=== PATIENT | male | born 1990 | race Caucasian/White ===

== ENCOUNTER 2018-10-13 10:45 | Emergency (ER) | payer BC, OTHER ==
[~2018-10-13] VITALS: Ht 185.4 cm; Wt 87.1 kg
--- OUTSIDE RECORDS SUMMARY | 2018-10-13 10:52 | XMS REPORT | Continuity of Care Document ---
Author Author [facility] Ctr of [facility] Ctr of [facility] Address Unknown Phone Unavailable Allergies There is no data. Medications There is no data. Problems Date Dx Coded Attending Type Code Diagnosis Diagnosed By 06/14/2009 692.9 DERMATITIS CONTACT UNSPECIFIED 06/14/2009 724.5 BACKACHE UNSPECIFIED 06/14/2009 786.2 COUGH 06/14/2009 HODGES DO JAVID K 692.9 DERMATITIS CONTACT UNSPECIFIED 06/14/2009 HODGES DO JAVID K 724.5 BACKACHE UNSPECIFIED 06/14/2009 HODGES DO JAVID K 786.2 COUGH 06/14/2009 KAVIN SHEN APRN 692.9 DERMATITIS CONTACT UNSPECIFIED 06/14/2009 KAVIN SHEN APRN R 724.5 BACKACHE UNSPECIFIED 06/14/2009 KAVIN SHEN APRN R 786.2 COUGH 09/17/2014 HODGES DO JAVID K 724.1 PAIN IN THORACIC SPINE 09/17/2014 CARROLL RAMOS JAVID K 737.34 THORACOGENIC SCOLIOSIS 09/17/2014 KAVIN SHEN APRN R 724.1 PAIN IN THORACIC SPINE 09/17/2014 KAVIN SHEN APRN R 737.34 THORACOGENIC SCOLIOSIS 10/08/2014 KAVIN SHEN APRN V70.0 ROUTINE GENERAL MEDICAL EXAMINATION AT A HEALTH CARE FACILITY Procedures Code [place] [address] XRAY THORACIC SPINE 2 VIEWS 04/01/2013 PHYSICAL PHYSICAL THERAPY, VIA [facility]IA 04/01/2013 74305 XRAY THORACIC SPINE 3 VIEWS 09/17/2014 53558 XRAY LUMBAR SPINE 2 OR 3 VIEWS 09/17/2014 66233 URINE DRUG SCREEN (IN-HOUSE ) 10/08/2014 00070 [employer] 10/08/2014 Results There is no data. Encounters ACCT No. Visit Date/Time Discharge Status Pt. Type Provider Facility Loc./Unit Complaint [id number] 10/08/2014 11:01:00 10/08/2014 23:59:59 CLS Outpatient KAVIN SHEN APRN [id number] 09/17/2014 10:23:00 09/17/2014 23:59:59 CLS Outpatient JAVID HODGES DO [id number] 04/01/2013 10:11:00 Document Registration
--- OUTSIDE RECORDS SUMMARY | 2018-10-13 10:52 | XMS REPORT ---
Author Author PAU MORAN [facility] Address [address] [place] [address] Phone Unavailable Care Team Providers Care Production Quality Analyst Name Role Phone PAU MORAN Unavailable Unavailable PROBLEMS Type Condition ICD9-CM Code [id number] Code Onset Dates Condition Status SNOMED Code Problem Pain in thoracic spine 724.1 Active 979462822 Problem Thoracogenic scoliosis 737.34 Active 75806035 Problem Routine general medical examination at [facility] care facility V70.0 Active [id number] ALLERGIES No Information ENCOUNTERS Encounter Location Date Diagnosis [facility] [address] [id number] [address] Sep, Encounter for immunization Z23 [facility] [id number] [place] [address] Jul, Encounter for immunization Z23 [facility] [id number] [place] [address] Mar, [facility] [id number] [place] [address] Mar, [facility] [id number] [place] [address] Oct, [facility] [id number] [place] [address]- 1184 Oct, [facility] [id number] [place] [address]- 7380 Oct, [facility] [id number] [place] [address]07- 9254 Oct, [facility] [id number] [place] [address]49- 2625 Sep, [facility] [address] [address] [address] Sep, [facility] [address] [facility] [id number] [address] Sep, [facility] [address] [facility] [id number] [address] Sep, [facility] [address] [facility] [id number] Sep, [facility] [address] [facility] [id number], [place] [address] Sep, [facility] [address] [facility] [id number] Sep, [facility] [address] [facility] [id number], [place] [address] Sep, [facility] [address] [address] May, [facility] [address] [address] April, [facility] [id number] [address] April, [facility] [id number] [address] Jun, IMMUNIZATIONS Vaccine Route Administration Date Status HEP B (ADULT) IM Intramuscular Sep 01, 2018 Administered SOCIAL HISTORY Never Assessed REASON FOR VISIT Immunization(s) PLAN OF CARE VITAL SIGNS MEDICATIONS Unknown Medications RESULTS No Results PROCEDURES Procedure Date Ordered Result Body Site HEP B (ADULT) Sep 01, 2018 SINGLE IMMUNIZATION ADMIN Sep 01, 2018 INSTRUCTIONS MEDICATIONS ADMINISTERED No Known Medications
--- OUTSIDE RECORDS SUMMARY | 2018-10-13 10:52 | XMS REPORT ---
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.34 Active 99458651 Problem Routine general medical examination at [facility] care facility V70.0 Active [id number] ALLERGIES No Information ENCOUNTERS Encounter Location Date Diagnosis [facility] [id number] [place] [address] Jul, Encounter for immunization Z23 [facility] [id number] [place] [address] Mar, [facility] [id number] [place] [address]65- 4008 Mar, [facility] [id number] [place] [address]- [address]78 Oct, [facility] [id number] [place] [address]- 9149 Oct, [facility] [id number] [place] [address] 85854- 6004 Oct, [facility] [id number] [place] [address] 9[address]31- 8843 Oct, [facility] [address] [address] Sep, [facility] [id number] [place] [address]- [address]11 Sep, [facility] [address] [address] Sep, [facility] [id number], [place] [address] Sep, [facility] [address] [facility] [id number] [address] Sep, [facility] [id number] [address] Sep, [facility] [id number] [address] Sep, [facility] [id number] [address] Sep, [facility] [address], [place] [address] May, [facility] [address], [place] [address] April, [facility] [address], [place] [address] April, [facility] [id number], [place] [address] Jun, IMMUNIZATIONS Vaccine Route Administration Date Status TDAP (BOOSTRIX) IM Intramuscular Jul 30, 2018 Administered HEP B (ADULT) IM Intramuscular Jul 30, 2018 Administered SOCIAL HISTORY Never Assessed REASON FOR VISIT Pt wanting Hep B and TDap injections.TIMOTHY PLAN OF CARE VITAL SIGNS MEDICATIONS Unknown Medications RESULTS No Results PROCEDURES Procedure Date Ordered Result Body Site TDAP (BOOSTRIX) Jul 30, 2018 HEP B (ADULT) Jul 30, 2018 IMMUNIZATION ADMIN, EACH ADD (please include units) Jul 30, 2018 SINGLE IMMUNIZATION ADMIN Jul 30, 2018 INSTRUCTIONS MEDICATIONS ADMINISTERED No Known Medications
[2018-10-13] MEDS ORDERED: NS IV 500 ML 500 ML IV ONE (11:11)
--- NOTE | 2018-10-13 11:11 | ED Cardiac General ---
History of Present Illness General Stated Complaint: HEART FLUTTERING PAIN IN CHEST Source: patient Exam Limitations: no limitations History of Present Illness Date Seen by Provider: Oct 13, 2018 Time Seen by Provider: 10:59 Initial Comments The patient presents to ER by private conveyance from work with a chief complaint he is having some palpitations in his left anterior chest feels like his heart is pumping molasses. He says he also feels sweats and tired. He seems to be worse with exertion. This is been going on over the weekend for the past 3 days and got worse today while at work so his were consistently come the ER to be checked out. He has no known medical history. He does not smoke have thyroid, cholesterol, hypertension, diabetes. Says he rarely drinks once or twice a year. Denies use of any recreational drugs. No primary family history of early onset coronary artery disease or sudden cardiac . He says when he was 18 years old he did have some kind of viral heart infection and had to go to [place], [place] and get a workup but he doesn't know anything about the outcome of that and does not follow up for that. She's not been having weight gain recently or swelling of his hands or feet. He is not having any shortness of breath nausea or chills fever. He does have an occasional dry cough. He denies orthopnea. Allergies and Home Medications Allergies Coded Allergies: No Known Drug Allergies (Unverified , 10/13/18) Home Medications No Active Prescriptions or Reported Meds Patient Home Medication List Home Medication List Reviewed: Yes Review of Systems Review of Systems Constitutional: No chills; diaphoresis; No fever; malaise EENTM: No Blurred Vision, No Double Vision Respiratory: Cough; Denies Orthopnea, Denies Shortness of Air, Denies Wheezing Cardiovascular: Chest Pain (mild substernal); Denies Edema Gastrointestinal: Denies Abdomen Distended, Denies Abdominal Pain, Denies Nausea Genitourinary: Denies Burning, Denies Discharge Musculoskeletal: No back pain, No joint pain Psychiatric/Neurological: Denies Anxiety, Denies Depressed Past Ljevsyu-Rychhp-Orhcsd Hx Patient Social History Alcohol Use: Rarely Uses Alcohol Beverage of Choice: Beer Recreational Drug Use: No Smoking Status: Never a Smoker Physical Exam Vital Signs Vital Signs - First Documented 10/13/18 10:50 Temp 97.8 Pulse 109 Resp 13 B/P (MAP) 154/99 (117) Pulse Ox 99 O2 Delivery Room Air Capillary Refill : Height, Weight, BMI Height: '" Weight: lbs. oz. kg; BMI Method: General Appearance: No Apparent Distress, WD/WN HEENT: PERRL/EOMI, Normal ENT Inspection, Pharynx Normal, Moist Mucous Membranes Neck: Full Range of Motion, Normal Inspection, Non Tender, Supple Respiratory: Chest Non Tender, Lungs Clear, Normal Breath Sounds, No Accessory Muscle Use, No Respiratory Distress Cardiovascular: Regular Rate, Rhythm, No Edema, No Gallop, No JVD, No Murmur, Normal Peripheral Pulses Gastrointestinal: Non Tender, Soft Extremity: Normal Capillary Refill, Normal Inspection, No Pedal Edema Neurologic/Psychiatric: Alert, Oriented x3 Skin: Normal Color, Warm/Dry Progress/Results/Core Measures Results/Orders Lab Results Laboratory Tests Test 10/13/18 11:05 10/13/18 11:40 Range/Units White Blood Count 11.4 H 4.3-11.0 10^3/uL Red Blood Count 6.50 H 4.35-5.85 10^6/uL Hemoglobin 17.0 13.3-17.7 G/DL Hematocrit 50 40-54 % Mean Corpuscular Volume 77 L 80-99 FL Mean Corpuscular Hemoglobin 26 25-34 PG Mean Corpuscular Hemoglobin Concent 34 32-36 G/DL Red Cell Distribution Width 15.0 H 10.0-14.5 % Platelet Count 362 130-400 10^3/uL Mean Platelet Volume 9.0 7.4-10.4 FL Neutrophils (%) (Auto) 64 42-75 % Lymphocytes (%) (Auto) 25 12-44 % Monocytes (%) (Auto) 7 0-12 % Eosinophils (%) (Auto) 1 0-10 % Basophils (%) (Auto) 3 0-10 % Neutrophils # (Auto) 7.3 1.8-7.8 X 10^3 Lymphocytes # (Auto) 2.8 1.0-4.0 X 10^3 Monocytes # (Auto) 0.8 0.0-1.0 X 10^3 Eosinophils # (Auto) 0.1 0.0-0.3 10^3/uL Basophils # (Auto) 0.3 H 0.0-0.1 10^3/uL Neutrophils % (Manual) 62 % Lymphocytes % (Manual) 14 % Monocytes % (Manual) 7 % Eosinophils % (Manual) 1 % Metamyelocytes % 5 % Myelocytes % 1 % Band Neutrophils 2 % Reactive Lymphocytes 13 % Polychromasia SLIGHT Microcytosis SLIGHT Prothrombin Time 12.6 12.2-14.7 SEC INR Comment 0.9 0.8-1.4 Activated Partial Thromboplast Time 27 24-35 SEC D-Dimer 0.30 0.00-0.49 UG/ML Sodium Level 139 135-145 MMOL/L Potassium Level 4.2 3.6-5.0 MMOL/L Chloride Level 105 98-107 MMOL/L Carbon Dioxide Level 23 21-32 MMOL/L Anion Gap 11 5-14 MMOL/L Blood Urea Nitrogen 16 7-18 MG/DL Creatinine 0.90 0.60-1.30 MG/DL Estimat Glomerular Filtration Rate > 60 BUN/Creatinine Ratio 18 Glucose Level 97 70-105 MG/DL Calcium Level 10.1 8.5-10.1 MG/DL Corrected Calcium 8.5-10.1 MG/DL Magnesium Level 2.4 1.8-2.4 MG/DL Total Bilirubin 0.4 0.1-1.0 MG/DL Aspartate Amino Transf (AST/SGOT) 24 5-34 U/L Alanine Aminotransferase (ALT/SGPT) 49 0-55 U/L Alkaline Phosphatase 73 40-136 U/L Myoglobin 32.2 10.0-92.0 NG/ML Troponin I < 0.30 <0.30 NG/ML B-Type Natriuretic Peptide < 10.0 <100.0 PG/ML Total Protein 7.7 6.4-8.2 GM/DL Albumin 4.8 H 3.2-4.5 GM/DL Thyroid Stimulating Hormone (TSH) 1.34 0.35-4.94 UIU/ML Urine Opiates Screen NEGATIVE NEGATIVE Urine Oxycodone Screen NEGATIVE NEGATIVE Urine Methadone Screen NEGATIVE NEGATIVE Urine Propoxyphene Screen NEGATIVE NEGATIVE Urine Barbiturates Screen NEGATIVE NEGATIVE Ur Tricyclic Antidepressants Screen NEGATIVE NEGATIVE Urine Phencyclidine Screen NEGATIVE NEGATIVE Urine Amphetamines Screen NEGATIVE NEGATIVE Urine Methamphetamines Screen NEGATIVE NEGATIVE Urine Benzodiazepines Screen NEGATIVE NEGATIVE Urine Cocaine Screen NEGATIVE NEGATIVE Urine Cannabinoids Screen NEGATIVE NEGATIVE My Orders Orders - EDGAR MURPHY Chest Pa/Lat (2 View) (10/13/18 11:04) Cbc With Automated Diff (10/13/18 11:04) Magnesium (10/13/18 11:04) Ekg Tracing (10/13/18 11:04) Cardiac Profile 1 (10/13/18 11:04) Comprehensive Metabolic Panel (10/13/18 11:04) Myoglobin Serum (10/13/18 11:04) Protime With Inr (10/13/18 11:04) Partial Thromboplastin Time (10/13/18 11:04) O2 (10/13/18 11:04) Monitor-Rhythm Ecg Trace Only (10/13/18 11:04) Lipid Panel (10/14/18 06:00) Aspirin Chewable Tablet (Baby Aspirin Ch (10/13/18 11:15) Saline Lock/Iv-Start (10/13/18 11:04) BNP (10/13/18 11:04) Fibrin Degradation Products (10/13/18 11:04) Saline Lock/Iv-Start (10/13/18 11:04) Saline Lock/Iv-Start (10/13/18 11:11) Ns Iv 500 Ml (Sodium Chloride 0.9%) (10/13/18 11:11) Thyroid Stimulating Hormone (10/13/18 11:11) Drug Screen Stat (Urine) (10/13/18 11:11) Metoclopramide Injection (Reglan Injecti (10/13/18 11:45) Manual Differential (10/13/18 11:05) Medications Given in ED Current Medications Medications Dose Ordered Sig/Lance Route Start Time Stop Time Status Last Admin Dose Admin Aspirin 324 mg ONCE ONCE PO 10/13/18 11:15 10/13/18 11:16 DC 10/13/18 11:12 324 MG Sodium Chloride 500 ml @ 0 mls/hr Q0M ONCE IV 10/13/18 11:11 10/13/18 11:13 DC 10/13/18 11:32 500 MLS/HR Vital Signs/I&O 10/13/18 10:50 Temp 97.8 Pulse 109 Resp 13 B/P (MAP) 154/99 (117) Pulse Ox 99 O2 Delivery Room Air Progress Progress Note #1: Time: 11:09 Progress Note The patient's chest discomfort is very mild. It is not reproducible to direct palpation. His tachycardia is persistent. Could be from anxiety. EKG shows sinus tachycardia. Plan to keep him on telemetry obtain labs give him an aspirin and get a urine drug screen and consult cardiology. Two-view chest and start with a small dose of saline. Progress Note #2: Time: 12:46 Progress Note After his liter of fluids the patient's heart rate is now down into the 80s and 90s. He is much more comfortable. Chest pains been going on as well as palpitations for the past 3 days so an initial troponin being negative is reassuring. Initial ECG Impression Date: Oct 13, 2018 Initial ECG Impression Time: 10:53 Initial ECG Rate: 102 Initial ECG Rhythm: S.Tach Initial ECG Intervals: Normal Initial ECG Impression: Normal Initial ECG Comparisson: No Previous ECG Available Comment Sinus tachycardia without ST changes. Diagnostic Imaging Diagonstic Imaging: Xray Plain Films/CT/US/NM/MRI: chest (2v) Comments VIA [facility] [place], [place] NAME: FABRIZIO GUZMAN [facility] REC#: [id number] PT STATUS: REG ER : 1990 PHYSICIAN: EDGAR MURPHY MD ADMIT DATE: 10/13/18/ER Draft Date of Exam:10/13/18 CHEST PA/LAT (2 VIEW) INDICATION: Heart flutter. TIME OF EXAM: 11:46 a.m. No prior studies are available for comparison. The heart size is normal. The pulmonary vascularity is unremarkable. The lungs are clear. No infiltrate, effusion or pneumothorax is detected. IMPRESSION: No acute cardiopulmonary process is detected. Dictated on workstation # [id number] Dict: 10/13/18 1127 Trans: 10/13/18 1130 [facility] [id number] Interpreted by: ZAINA CALDERON MD Electronically signed by: Reviewed: Reviewed by Me Consults : Consulting Physician: DEBORAH SHORT MD Consults Notes Did consult and he agrees patient is probably just dehydrated with the patient would like to follow-up in the clinic have a him. Departure Impression Primary Impression: Dehydration Additional Impression: Heart palpitations Disposition: 01 HOME, SELF-CARE Condition: Improved Departure-Patient Inst. Decision time for Depature: 12:46 Referrals: DAINA PALACIOS APRN (PCP) Primary Care Physician [facility] (Family) Primary Care Physician DEBORAH SHORT MD Patient Instructions: Palpitations (DC) Add. Discharge Instructions: Call Dr. Short, cardiology for an appointment later this week to discuss her symptoms as well as your cardiac history. Drink more fluids and return to work tomorrow. If you have new or worsening chest pain or other concerning symptoms such as shortness of breath nausea vomiting then you should return to the nearest ER. Scripts No Active Prescriptions or Reported Meds Work/School Note: Work Release Form Date Seen in the Emergency Department: Oct 13, 2018 Return to Work: Oct 14, 2018 Restrictions: No Restrictions Copy Copies To 1: DEBORAH SHORT MD, TITUS J Oct 13, 2018 11:11
[2018-10-13 11:14] LABS: BASOPHILS # (AUTO) 0.3 10^3/uL (0.0-0.1); BASOPHILS % (AUTO) 3 % (0-10); EOSINOPHILS # (AUTO) 0.1 10^3/uL (0.0-0.3); EOSINOPHILS % (AUTO) 1 % (0-10); HEMATOCRIT 50 % (40-54); LYMPHOCYTES # (AUTO) 2.8 X 10^3 (1.0-4.0); LYMPHOCYTES % (AUTO) 25 % (12-44); MEAN CORPUSCULAR HEMOGLOBIN 26 PG (25-34); MEAN CORPUSCULAR HGB CONC 34 G/DL (32-36); MEAN CORPUSCULAR VOLUME 77 FL (80-99); MONOCYTES # (AUTO) 0.8 X 10^3 (0.0-1.0); MONOCYTES % (AUTO) 7 % (0-12); NEUTROPHILS # (AUTO) 7.3 X 10^3 (1.8-7.8); NEUTROPHILS % (AUTO) 64 % (42-75); PLATELET COUNT 362 10^3/uL (130-400); WHITE BLOOD COUNT 11.4 10^3/uL (4.3-11.0)
[2018-10-13] MEDS ORDERED: ASPIRIN 81 MG CHEW (CHILDREN'S ASA) PO ONE (11:15)
[2018-10-13 11:25] LABS: INR 0.9 (0.8-1.4); PROTHROMBIN TIME PATIENT 12.6 SEC (12.2-14.7)
--- NOTE | 2018-10-13 11:30 | Diagnostic Imaging Report ---
INDICATION: Heart flutter. TIME OF EXAM: 11:46 a.m. No prior studies are available for comparison. The heart size is normal. The pulmonary vascularity is unremarkable. The lungs are clear. No infiltrate, effusion or pneumothorax is detected. IMPRESSION: No acute cardiopulmonary process is detected. Dictated by: Dictated on workstation # [id number]
[2018-10-13 11:31] LABS: ALANINE AMINOTRANSFERASE 49 U/L (0-55); ALBUMIN 4.8 GM/DL (3.2-4.5); ALKALINE PHOSPHATASE 73 U/L (40-136); BILIRUBIN,TOTAL 0.4 MG/DL (0.1-1.0); BUN/CREATININE RATIO 18; CALCIUM 10.1 MG/DL (8.5-10.1); CARBON DIOXIDE 23 MMOL/L (21-32); CHLORIDE 105 MMOL/L (98-107); GFR ESTIMATED > 60; GLUCOSE 97 MG/DL (70-105); MAGNESIUM 2.4 MG/DL (1.8-2.4); POTASSIUM 4.2 MMOL/L (3.6-5.0); SODIUM 139 MMOL/L (135-145); TOTAL PROTEIN 7.7 GM/DL (6.4-8.2)
[2018-10-13] MEDS ORDERED: METOCLOPRAMIDE INJ 10 MG/2 ML (REGLAN) IVP ONE (11:45)
[2018-10-13 11:50] LABS: MYOGLOBIN SERUM 32.2 NG/ML (10.0-92.0)
[2018-10-13 11:51] LABS: BAND NEUTROPHILS 2 %; EOSINOPHILS % (MANUAL) 1 %; LYMPHOCYTES % (MANUAL) 14 %; METAMYELOCYTES % 5 %; MICROCYTOSIS SLIGHT; MONOCYTES % (MANUAL) 7 %; MYELOCYTES % 1 %; NEUTROPHILS % (MANUAL) 62 %; POLYCHROMASIA SLIGHT; REACTIVE LYMPHOCYTES 13 %
[2018-10-13 12:01] LABS: AMPHETAMINE SCREEN, URINE NEGATIVE (NEGATIVE); BARBITURATE SCREEN URINE NEGATIVE (NEGATIVE); BENZODIAZEPINES SCREEN URINE NEGATIVE (NEGATIVE); CANNABINOID SCREEN, URINE NEGATIVE (NEGATIVE); COCAINE SCREEN URINE NEGATIVE (NEGATIVE); METHADONE STAT NEGATIVE (NEGATIVE); METHAMPHETAMINE SCREEN URINE S NEGATIVE (NEGATIVE); OPIATE SCREEN URINE NEGATIVE (NEGATIVE); OXYCODONE STAT NEGATIVE (NEGATIVE); PROPOXYPHENE STAT NEGATIVE (NEGATIVE); TRICYCLIC ANTIDEPRESSANTS SCRE NEGATIVE (NEGATIVE)
[2018-10-13 13:22] VITALS: BP 156/75
== END 2018-10-13 13:22 | disposition home or self-care (01) ==
LOC: EDUNIT# 10:45 → ER 10:48
DX: R00.2 Palpitations (principal); E86.0 Dehydration
CPT/HCPCS: 36415; 71046; 80053; 80306; 83735; 83874; 83880; 84443; 84484; 85007; 85025; 85027; 85379; 85610; 85730; 93005; 93041